=== PATIENT | male | born 1950 | race Native Hawaiian/Other Pacific Islander ===

== ENCOUNTER 2016-12-15 13:21 | Outpatient (CLI) | payer OTHER | END 2016-12-15 13:27 | disposition short-term general hospital (02) | LOC: AMB 13:21 | DX: M25.512 Pain in left shoulder (principal); W13.2XXA Fall from, out of or through roof, initial encounter; Y92.098 Other place in other non-institutional residence as the place of occurrence of the external cause | CPT/HCPCS: A0425; A0427 ==

== ENCOUNTER 2016-12-15 13:27 | Observation (INO) | payer OTHER ==
[2016-12-15] VITALS (7 sets, daily range): BP systolic 108–149; BP diastolic 59–80; TEMP 97.7–99.2; Ht 172.7 cm; Wt 65.0 kg
[~2016-12-15] VITALS: Ht 172.7 cm; Wt 65.0 kg
[2016-12-15 14:52] LABS: PLATELET COUNT 164 K/uL (142-355)
[2016-12-15 15:09] LABS: POTASSIUM 3.4 mmol/L (3.6-5.2); SODIUM 135 mmol/L (136-145)
[2016-12-16 00:15] VITALS: BP 104/53; TEMP 99.4
[2016-12-16 04:00] VITALS: BP 100/56; TEMP 99.9
[2016-12-16 06:23] LABS: PLATELET COUNT 157 K/uL (142-355)
[2016-12-16 06:44] LABS: POTASSIUM 3.7 mmol/L (3.6-5.2); SODIUM 138 mmol/L (136-145)
[2016-12-16 08:24] VITALS: BP 125/66; TEMP 99
[2016-12-16 11:57] VITALS: BP 116/69; TEMP 98.5
[2016-12-16 16:26] VITALS: BP 123/70; TEMP 99
== END 2016-12-16 18:40 | disposition home or self-care (01) ==
LOC: ED 13:27 → MED/SURG 15:50
PROVIDERS: Family Medicine
DX: S42.002A Fracture of unspecified part of left clavicle, initial encounter for closed fracture (principal); S27.0XXA Traumatic pneumothorax, initial encounter; W11.XXXA Fall on and from ladder, initial encounter; Y93.89 Activity, other specified; Y92.89 Other specified places as the place of occurrence of the external cause; J43.8 Other emphysema; S22.42XA Multiple fractures of ribs, left side, initial encounter for closed fracture; R07.89 Other chest pain; R10.84 Generalized abdominal pain
CPT/HCPCS: 36415; 80053; 83735; 85027; 90715; 94640; 94664; 94760; 96365; 96366; 96367; 96372; 96374; 96376; 99220; 99284; G0378; J0696; J1650; J2270; J3490

== ENCOUNTER 2019-02-06 21:34 | Emergency (ER) | payer OTHER ==
[~2019-02-06] VITALS: Ht 172.7 cm; Wt 68.0 kg
[2019-02-06 21:46] VITALS: TEMP 98.1
[2019-02-06 23:07] VITALS: BP 149/79
== END 2019-02-06 23:07 | disposition home or self-care (01) ==
LOC: ED 21:34
DX: S22.42XA Multiple fractures of ribs, left side, initial encounter for closed fracture (principal); W12.XXXA Fall on and from scaffolding, initial encounter; Y92.89 Other specified places as the place of occurrence of the external cause
CPT/HCPCS: 99283

== ENCOUNTER 2021-05-01 08:16 | Outpatient (CLI) | payer OTHER ==
[~2021-05-01] VITALS: Ht 172.7 cm; Wt 63.5 kg
== END 2021-05-01 20:34 | disposition home or self-care (01) ==
LOC: INF 08:16
PROVIDERS: ATTEND Family Medicine
DX: Z23 Encounter for immunization (principal); U07.1 COVID-19
CPT/HCPCS: 96365; M0244

== ENCOUNTER 2021-08-30 12:53 | Emergency (ER) | payer OTHER ==
[~2021-08-30] VITALS: Ht 172.7 cm; Wt 65.3 kg
[2021-08-30 12:58] VITALS: TEMP 97.6
[2021-08-30 13:36] LABS: PLATELET COUNT 187 K/uL (142-355)
[2021-08-30 13:41] LABS: POTASSIUM 4.2 mmol/L (3.6-5.2)
[2021-08-30 13:51] LABS: PARTIAL THROMBOPLASTIN TIME 23.8 SECONDS (24.5-33.6)
[2021-08-30 18:26] VITALS: BP 132/78
== END 2021-08-30 18:40 | disposition home or self-care (01) ==
LOC: ED 12:53
PROVIDERS: Emergency Medicine
DX: R07.89 Other chest pain (principal); I50.9 Heart failure, unspecified
CPT/HCPCS: 80053; 82550; 83880; 84484; 85027; 85379; 85610; 85730; 93005; 99284

== ENCOUNTER 2021-09-03 18:25 | Observation (INO) | payer OTHER ==
[~2021-09-03] VITALS: Ht 172.7 cm; Wt 65.5 kg
[2021-09-03 19:33] LABS: PLATELET COUNT 173 K/uL (142-355)
[2021-09-03 19:53] LABS: POTASSIUM 4.2 mmol/L (3.6-5.2)
[2021-09-03 20:06] VITALS: BP 138/75; TEMP 98.4
[2021-09-03 21:42] VITALS: BP 149/77; TEMP 98.6; Ht 172.7 cm; Wt 65.5 kg
[2021-09-04 00:04] VITALS: BP 117/66; TEMP 97.7
[2021-09-04 04:00] VITALS: BP 127/75; TEMP 98.5
[2021-09-04 08:00] VITALS: BP 117/58; TEMP 97.5
[2021-09-04] MEDS ORDERED: ELIQUIS5 MG PO (09:19)
[2021-09-04] MEDS ORDERED: AMIODARONE HYD200 MG PO (09:19)
[2021-09-04] MEDS ORDERED: LIPITOR40 MG PO (09:20)
[2021-09-04] MEDS ORDERED: FUROSEMIDE20 MG PO (09:21)
[2021-09-04] MEDS ORDERED: CARV3.12 PO (09:21)
[2021-09-04] MEDS ORDERED: LOSA50TA PO (09:22)
[2021-09-04 12:00] VITALS: BP 117/66; TEMP 97.9
[2021-09-04 16:00] VITALS: BP 114/61; TEMP 97.9
[2021-09-04 20:00] VITALS: BP 116/66; TEMP 98.6
[2021-09-05] VITALS: BP 104/64; TEMP 98.3
[2021-09-05 04:00] VITALS: BP 126/66; TEMP 98
[2021-09-05 04:56] LABS: PLATELET COUNT 149 K/uL (142-355)
[2021-09-05 05:23] LABS: POTASSIUM 3.6 mmol/L (3.6-5.2)
[2021-09-05 08:00] VITALS: BP 121/56; TEMP 98
[2021-09-05 12:00] VITALS: BP 123/64; TEMP 98.3
[2021-09-05 16:00] VITALS: BP 112/65; TEMP 97.6
== END 2021-09-05 17:33 | disposition home or self-care (01) ==
LOC: MED/SURG 18:25
PROVIDERS: ADMIT Family Medicine; ATTEND Family Medicine
DX: R07.89 Other chest pain (principal); R13.19 Other dysphagia; I10 Essential (primary) hypertension; M13.88 Other specified arthritis, other site; K44.9 Diaphragmatic hernia without obstruction or gangrene
CPT/HCPCS: 36415; 80053; 82550; 83735; 84100; 84484; 85027; 85610; 85730; 87635; 93005; 96372; 99220; G0378; G0379; J1650; U0003

== ENCOUNTER 2021-09-18 08:43 | Outpatient (CLI) | payer OTHER ==
[~2021-09-18 08:43] MED LIST: AMIODARONE HYD200 MG PO; CARV3.12 PO; ELIQUIS5 MG PO; FUROSEMIDE20 MG PO; LIPITOR40 MG PO; LOSA50TA PO
== END 2021-09-18 18:44 | disposition home or self-care (01) ==
LOC: RESP 08:43
PROVIDERS: ATTEND Family Medicine
DX: R07.89 Other chest pain (principal)

== ENCOUNTER 2021-09-19 08:02 | Outpatient (CLI) | payer OTHER ==
[~2021-09-19] VITALS: Ht 172.7 cm; Wt 67.6 kg
== END 2021-09-19 20:07 | disposition home or self-care (01) ==
LOC: NM 08:02
PROVIDERS: ATTEND Family Medicine
DX: R07.89 Other chest pain (principal)
CPT/HCPCS: A9500; J2785